=== PATIENT | female | born 1970 | race Native Hawaiian/Other Pacific Islander ===

== ENCOUNTER 2016-11-28 18:45 | Inpatient (IN) | payer OTHER ==
[~2016-11-28] VITALS: Ht 167.6 cm; Wt 86.2 kg
[2016-11-28] VITALS (11 sets, daily range): BP systolic 105–140; BP diastolic 59–88; TEMP 98–98.6; Ht 167.6 cm; Wt 86.2 kg
[~2016-11-28 18:45] MED LIST: ALLEGRA ALRG180 M1 OR; ALPR0.5T24 PO; DEPO-ESTRADI5 MG/ML IM; FLONASE0.05 %; IBUP800T30 PO; LEXAPRO10 MG OR; OMEP20CA PO; RANI150T78 PO; TESTOST CYP200 MG/ML IM; TIZA4TAB5 PO; TRAM50TA PO
[2016-11-28 19:15] LABS: PLATELET COUNT 257 K/uL (152-353)
[2016-11-28 19:39] LABS: POTASSIUM 3.8 mmol/L (3.6-5.2); SODIUM 139 mmol/L (136-145)
[2016-11-28 19:41] LABS: PARTIAL THROMBOPLASTIN TIME 20.6 SECONDS (24.5-33.6)
--- NOTE | 2016-11-28 22:30 | NUR ---
ALERT [facility] CALLED FOR UPDATE NO NEW ORDERS
--- NOTE | 2016-11-28 23:00 | NUR ---
[facility] CALLED FOR UPDATE ALERT AND RESTING
--- NOTE | 2016-11-28 23:09 | NUR ---
RCD PT VIA W/C ALERT ORIENTED MOVING ALL EXT. IV 18 G R/L AC NS BOLUS GIVEN, MONITOR ST.NG TO SUCT CHARCOAL RETURN.
[2016-11-29] VITALS (24 sets, daily range): BP systolic 106–136; BP diastolic 57–89; TEMP 97.6–99.6
--- NOTE | 2016-11-29 | NUR ---
SLEEPING EYES CLOSED NG SUCTION
--- NOTE | 2016-11-29 01:16 | NUR ---
BLOOD DRAWN RESTING MONITOR ST 120
--- NOTE | 2016-11-29 03:35 | NUR ---
SLEEPING EASILY ROUSED MONITOR CON ST .IV .45 AT 150/HR. URINE PALE YELLOW,NG LOW CONT SUCT.
--- NOTE | 2016-11-29 04:00 | NUR ---
EASILY ROUSED MONITOR ST NO CHANGE
--- NOTE | 2016-11-29 07:45 | NUR ---
AM ASSESSMENT DONE.
[2016-11-29 08:31] LABS: PLATELET COUNT 204 K/uL (152-353)
[2016-11-29 08:43] LABS: POTASSIUM 3.4 mmol/L (3.6-5.2); SODIUM 136 mmol/L (136-145)
--- NOTE | 2016-11-29 09:30 | NUR ---
LABS REPORTED TO DR. DURANT.
--- NOTE | 2016-11-29 10:12 | NUR ---
NEW ORDERS RECEIVED.
--- NOTE | 2016-11-29 10:22 | NUR ---
RT AT BEDSIDE FOR EKG.
--- NOTE | 2016-11-29 11:20 | NUR ---
PT GAGGING ON NGT. MEDS GIVEN.
--- NOTE | 2016-11-29 12:00 | NUR ---
DR. DURANT HERE TO SEE PT. NGT D/C'D PT ALEJANDRO WELL.
--- NOTE | 2016-11-29 12:30 | NUR ---
FAMILY AT BEDSIDE.
--- NOTE | 2016-11-29 14:16 | NUR ---
PT RESTING QUIETLY. WILL CONTINUE TO MONITOR.
--- NOTE | 2016-11-29 17:54 | NUR ---
PT RESTING QUIETLY WITH EYES CLOSED. WILL HOLD SUPPER TRAY.
--- NOTE | 2016-11-29 20:00 | NUR ---
FAMILY AT BEDSIDE.
--- NOTE | 2016-11-29 22:57 | NUR ---
PT STATES ANXIOUS, UNABLE TO REST. ATIVAN 2MG IV ORDERED.
[2016-11-30] VITALS (23 sets, daily range): BP systolic 100–142; BP diastolic 65–98; TEMP 97.9–98.8
--- NOTE | 2016-11-30 00:07 | NUR ---
PT RESTING QUIETLY WITH EYES CLOSED. NO DISTRESS NOTED.
--- NOTE | 2016-11-30 05:03 | NUR ---
PT CONTINUES TO REST.
--- NOTE | 2016-11-30 05:45 | NUR ---
LAB PRESENT TO DRAW AM LABS
[2016-11-30 06:01] LABS: PLATELET COUNT 200 K/uL (152-353)
[2016-11-30 06:32] LABS: POTASSIUM 3.7 mmol/L (3.6-5.2); SODIUM 135 mmol/L (136-145)
--- NOTE | 2016-11-30 08:00 | NUR ---
AM ASSESSMENT DONE.
--- NOTE | 2016-11-30 09:00 | NUR ---
PT RESTING QUIETLY WITH EYES CLOSED.
--- NOTE | 2016-11-30 10:05 | NUR ---
DR. DURANT HERE TO SEE PT.
--- NOTE | 2016-11-30 12:00 | NUR ---
PT TALKING WITH DAD ON PHONE.
--- NOTE | 2016-11-30 12:30 | NUR ---
PT EATING LUNCH.
--- NOTE | 2016-11-30 15:56 | NUR ---
PT RESTING QUIETLY WITH EYES CLOSED.
--- NOTE | 2016-11-30 18:10 | NUR ---
PT SITTING UP EATING SUPPER.
--- NOTE | 2016-11-30 19:51 | NUR ---
FAMILY AT BEDSIDE. PATIENT AWAKE AND ALERT. NO DISTRESS NOTED.
--- NOTE | 2016-11-30 20:06 | NUR ---
FAMILY AT BEDSIDE. PATIENT IS UPSET AND CRYING. PATIENT DENIES PAIN OR DISCOMFORT.
--- NOTE | 2016-11-30 22:31 | NUR ---
PATIENT ASLEEP AND AWAKE TO VOICE, NO COMPLAINTS NOTED.
--- NOTE | 2016-11-30 22:53 | NUR ---
AT PATIENT BEDSIDE FOR MEDICATION ADMINISTRATION. PATIENT AWAKE AND ALERT TO VOICE. NO DISTRESS NOTED. PATIENT ASK ABOUT WHEN SHE WILL BE ABLE TO LEAVE THE HOSPITAL AND WAS ADVISED THE DOCTOR WOULD BE BACK IN THE MORNING FOR ROUNDS AND WOULD BE ABLE TO GIVE HER MORE INFORMATION TO A DISCHARGE CONSIDERATION.
[2016-12-01] VITALS (14 sets, daily range): BP systolic 100–127; BP diastolic 58–93; TEMP 97.8–99
--- NOTE | 2016-12-01 03:00 | NUR ---
PATIENT SLEEPING AND AWAKE TO VOICE. NO COMPLAINTS OR DISTRESS
--- NOTE | 2016-12-01 05:50 | NUR ---
AT PATIENT BEDSIDE FOR LAB DRAWS. NO COMPLAINTS OR COMPLICATIONS
[2016-12-01 06:46] LABS: PLATELET COUNT 210 K/uL (152-353)
[2016-12-01 06:53] LABS: POTASSIUM 3.6 mmol/L (3.6-5.2); SODIUM 138 mmol/L (136-145)
--- NOTE | 2016-12-01 08:49 | NUR ---
PT SITTING UP IN BED EATING
--- NOTE | 2016-12-01 09:35 | NUR ---
PTS DAD IN TO SEE HER
--- NOTE | 2016-12-01 10:34 | NUR ---
DR DURANT AT BS
--- NOTE | 2016-12-01 10:48 | NUR ---
RONDON CATH REMOVED, PT TOLERATED WELL
--- NOTE | 2016-12-01 12:15 | NUR ---
PT AGGITATED THAT SHE HAS NOT HAD A SHOWER OR BRUSHED HER TEETH SINCE SHE HAS BEEN HERE. PT IS ALSO AGGITATED THAT SHE MAY NOT GO TO A MED SURG ROOM.
--- NOTE | 2016-12-01 12:42 | NUR ---
PT UP TO BATHROOM TO BRUSH TEETH. PT WAS ALSO GIVEN A BRUSH FOR HAIR, BUT STATES THAT SHE WILL DO IT LATER
--- NOTE | 2016-12-01 15:30 | NUR ---
REPORT GIVEN TO YONY BRAY RN
--- NOTE | 2016-12-01 16:00 | NUR ---
TRANSFERRED PT TO ROOM 1109. PT ALERT AND ORIENTED
--- NOTE | 2016-12-01 16:05 | NUR ---
KESHIA FROM [facility] CALLED. RECIEVED REPORT HR AROUND 100 STILL. NO SEIZURES, PT UP IN ROOM AMBULATION. WILL CLOSE CASE.
--- NOTE | 2016-12-01 17:00 | NUR ---
PTS VALUABLE ENVELOPE GIVEN (DEBIT CARD AND MONEY) ENVELOPE SEALED
--- NOTE | 2016-12-01 18:02 | NUR ---
1600 PT TRANSFERRED TO ROOM 1109 FROM ICU VIA WC PER ICU NURSE. PT AWAKE AND ALERT. ORIENTED X 4. NO DISTRESS NOTED. PT ASSISTED TO ROOM AND ASSITED TO SHOWER PER TECH. 1615 PT TOELRATED SHOWER WELL. NO PROBLEMS OR CO AT THIS TIME.
--- NOTE | 2016-12-01 19:17 | NUR ---
DISCUSSED WITH HUMZA BRAY RN PTS NURSE FROM [facility] THAT PT HAD STATED THAT NO ONE HAD OFFERED HER A BATH AND PT WAS UPSET. HUMZA STATED THAT HE HAD OFFERED FOR HER TO BATHE OFF AT BEDSIDE AND PT DID NOT WANT TOO. PT WAS TOLD THAT SHE COULD POSSIBLE GO TO THE FLOOR AND GET A SHOWER, AROUND 2300 PT WAS TOLD THAT SHE COULD GO AND GET SHOWER ON MED SURG FLOOR PER HUMZA BRAY RN AND PT STATED THAT IT WAS TOO LATE AND SHE WOULD WAIT.
[2016-12-02] VITALS: BP 97/67; TEMP 97.8
[2016-12-02 04:00] VITALS: BP 105/73; TEMP 97.9
[2016-12-02 05:23] LABS: PLATELET COUNT 242 K/uL (152-353)
[2016-12-02 05:44] LABS: POTASSIUM 3.9 mmol/L (3.6-5.2); SODIUM 140 mmol/L (136-145)
[2016-12-02 08:00] VITALS: BP 109/75; TEMP 98.6
== END 2016-12-02 11:15 | disposition home or self-care (01) | DRG 918 ==
LOC: ED 18:45 → ICU 20:45 → MED/SURG 12-01 16:48
PROVIDERS: Emergency Medicine
DX: T43.621A Poisoning by amphetamines, accidental (unintentional), initial encounter (principal); Y92.89 Other specified places as the place of occurrence of the external cause; R00.0 Tachycardia, unspecified; M62.82 Rhabdomyolysis; E87.6 Hypokalemia; E83.42 Hypomagnesemia; E77.8 Other disorders of glycoprotein metabolism; E88.09 Other disorders of plasma-protein metabolism, not elsewhere classified
CPT/HCPCS: 36415; 43754; 51702; 80053; 80307; 80320; 80329; 81000; 82550; 82553; 83735; 84484; 85027; 85610; 85730; 93005; 96360; 96361; 96372; 96375; 99284; G0479; J1650; J2060; J2405; J3411; J3475; J3480; J3490